=== PATIENT | female | born 1995 | race Two or more races ===

== ENCOUNTER 2017-12-17 21:53 | Observation (INO) | payer OTHER ==
[2017-12-17] MEDS ORDERED: IV RINGERS,LACTATED 1000ML 1,000 ML IV ×2 (21:55)
[2017-12-17 22:22] LABS: BILIRUBIN,URINE NEGATIVE (NEG); CLARITY,URINE CLOUDY; COLOR,URINE YELLOW; GLUCOSE,URINE NEGATIVE (NEG); NITRITE,URINE POSITIVE (NEG); PROTEIN,URINE 30 mg/dL (NEG-TRACE); UROBILINOGEN,URINE 0.2 mg/dL (0.2 mg/dL)
[2017-12-17 22:27] LABS: BACTERIA,URINE MANY /HPF (0-FEW); SQUAMOUS EPITHELIAL CELL,UR FEW /LPF; WBC,URINE 20-40 /HPF (0-4)
[2017-12-17 22:29] LABS: AMPHETAMINE/METHAMPHETAMINE NEG (NEG); BARBITURATES NEG (NEG); BENZODIAZEPINES NEG (NEG); CANNABINOIDS NEG (NEG); COCAINE NEG (NEG); ETHANOL, URINE NEG (NEG); METHADONE NEG (NEG); OPIATES NEG (NEG); PHENCYCLIDINE NEG (NEG)
== END 2017-12-17 22:50 | disposition home or self-care (01) ==
LOC: 3 SO LND 21:53
DX: O99.89 Other specified diseases and conditions complicating pregnancy, childbirth and the puerperium (principal); M54.9 Dorsalgia, unspecified; Z3A.22 22 weeks gestation of pregnancy
CPT/HCPCS: 80307; 81001; 87086; 87186; G0378; G0379

== ENCOUNTER 2017-12-20 19:29 | Observation (INO) | payer OTHER ==
[2017-12-20] MEDS ORDERED: IV RINGERS,LACTATED 1000ML 1,000 ML IV ×2 (19:30)
[2017-12-20] MEDS ORDERED: ONDANSETRON PF 4 MG/2 ML VIAL. IV ×2 (19:30)
[2017-12-20 19:56] LABS: BILIRUBIN,URINE NEGATIVE (NEG); CLARITY,URINE CLEAR; COLOR,URINE YELLOW; GLUCOSE,URINE NEGATIVE (NEG); NITRITE,URINE NEGATIVE (NEG); PROTEIN,URINE 30 mg/dL (NEG-TRACE)
[2017-12-20 20:01] LABS: AMPHETAMINE/METHAMPHETAMINE NEG (NEG); BARBITURATES NEG (NEG); BENZODIAZEPINES NEG (NEG); CANNABINOIDS NEG (NEG); COCAINE NEG (NEG); ETHANOL, URINE NEG (NEG); METHADONE NEG (NEG); OPIATES NEG (NEG); PHENCYCLIDINE NEG (NEG)
[2017-12-20 20:02] LABS: BACTERIA,URINE MANY /HPF (0-FEW); RBC,URINE 0 /HPF (0-2); SQUAMOUS EPITHELIAL CELL,UR MOD /LPF; WBC,URINE >40 /HPF (0-4)
[2017-12-20] MEDS: cefTRIAXone IV Push 1 GM VIAL. IVP ×2 (21:04)
[2017-12-20] MEDS: ONDANSETRON PF 4 MG/2 ML VIAL. IV ×2 (21:04)
[2017-12-20] MEDS: IV RINGERS,LACTATED 1000ML 1,000 ML IV ×4 (21:05→22:11)
[2017-12-20] MEDS: 0.9 % SODIUM CHLORIDE 10 ML DISP.SYRIN. IV ×2 (21:07)
[2017-12-21] MEDS: ACETAMINOPHEN 325 MG TABLET. PO ×6 (01:24→18:33)
[2017-12-21] MEDS: IV RINGERS,LACTATED 1000ML 1,000 ML IV ×8 (04:30→20:51)
[2017-12-21] MEDS: LACTOBACILLUS RHAMNOSUS GG 1 CAPSULE. PO ×2 (20:50)
[2017-12-21] MEDS: cefTRIAXone IV Push 1 GM VIAL. IVP ×2 (20:51)
[2017-12-22] MEDS: IV RINGERS,LACTATED 1000ML 1,000 ML IV ×2 (03:55)
[2017-12-22] MEDS: ALBUTEROL SULFATE 2.5 MG/3 ML NEBU. NEB ×2 (04:01)
[2017-12-22] MEDS: LACTOBACILLUS RHAMNOSUS GG 1 CAPSULE. PO ×2 (09:07)
[2017-12-22] MEDS: cefTRIAXone IV Push 1 GM VIAL. IVP ×2 (14:47)
== END 2017-12-22 16:00 | disposition home or self-care (01) ==
LOC: 3 SO LND 19:29
DX: O21.2 Late vomiting of pregnancy (principal); O26.892 Other specified pregnancy related conditions, second trimester; R10.9 Unspecified abdominal pain; R11.0 Nausea; Z3A.23 23 weeks gestation of pregnancy
CPT/HCPCS: 76805; 80307; 81001; 87086; 87186; 94640; 96361; 96374; 96375; 96376; G0378; G0379; J0696; J2405; J7120; J7613

== ENCOUNTER → 2018-03-11 | Outpatient (CLI) | payer OTHER | END | disposition home or self-care (01) | LOC: US 06:56 | DX: O26.843 Uterine size-date discrepancy, third trimester (principal); Z3A.35 35 weeks gestation of pregnancy | CPT/HCPCS: 76805 ==